=== PATIENT | male | born 1960 | race Caucasian/White ===

== ENCOUNTER 2017-09-09 06:29 | Day surgery (SDC) | payer OTHER ==
[2017-09-06 11:50] LABS: BASOPHILS # (AUTO) 0.1 X10'3 (0-0.2); BASOPHILS % (AUTO) 0.6 % (0-1); EOSINOPHILS # (AUTO) 0.1 X10'3 (0-0.9); EOSINOPHILS % (AUTO) 1.6 % (0-6); LYMPHOCYTES # (AUTO) 2.3 X10'3 (1.1-4.8); LYMPHOCYTES % (AUTO) 28.2 % (21-51); MEAN CORPUSCULAR HEMOGLOBIN 31.2 PG (27.0-31.0); MEAN CORPUSCULAR HGB CONC 35.1 % (33.0-36.5); MEAN CORPUSCULAR VOLUME 89.1 FL (78-98); MEAN PLATELET VOLUME 6.6 FL (7.4-10.4); MONOCYTES # (AUTO) 0.6 X10'3 (0-0.9); MONOCYTES % (AUTO) 7.5 % (2-12); NEUTROPHILS # (AUTO) 5.1 X10'3 (1.8-7.7); NEUTROPHILS % (AUTO) 62.1 % (42-75); PRE OP HEMATOCRIT 42.7 % (42.0-52.0); PRE OP PLATELET COUNT 329 X10'3 (140-440); RED BLOOD COUNT 4.79 X10'6 (4.70-6.10); RED CELL DISTRIBUTION WIDTH 14.3 % (11.5-14.5)
[2017-09-06 12:05] LABS: ALBUMIN 3.7 G/DL (3.4-5.0); ALKALINE PHOSPHATASE 65 IU/L (46-116); BLOOD UREA NITROGEN 19 MG/DL (7-18); BUN/CREATININE RATIO 21.6 (5.4-32.0); CALCIUM 8.9 MG/DL (8.5-10.1); CHLORIDE 108 MMOL/L (99-107); CREATININE 0.88 MG/DL (0.60-1.10); PRE OP ALT 15 U/L (30-65); PRE OP ANION GAP 8 (8-16); PRE OP AST 16 U/L (10-37); PRE OP BILIRUB, TOTAL 0.4 MG/DL (0.0-1.0); PRE OP GLUCOSE 98 MG/DL (70-104); PRE OP POTASSIUM 3.9 MMOL/L (3.4-5.1); PRE OP SODIUM 143 MMOL/L (135-145); TOTAL CARBON DIOXIDE 26.8 MMOL/L (24-32); TOTAL PROTEIN 7.3 G/DL (6.4-8.2); eGFR 90 ML/MIN
[~2017-09-09] VITALS: Ht 165.1 cm; Wt 79.9 kg
[~2017-09-09 06:29] MED LIST: NO HOME MEDS; ceFAZolin 2gm in dextrose, iso 100 ML IV ONE; famotidine 20mg tablet PO ONE; ringers solution, lacted 1,000 ML IV SCH
[2017-09-09] MEDS ORDERED: BUPIVAcaine/PF 2.5 mg/ml (0.25%) 30ml vial ONE (06:54)
[2017-09-09] MEDS ORDERED: LIDOcaine 0.5% (5mg/ml) 50ml vial ONE (08:04)
[2017-09-09] MEDS ORDERED: fentaNYL/PF 50MCG/1 ML 2ML syringe ONE (08:06)
[2017-09-09] MEDS ORDERED: midazolam 2 mg/2 ml injection ONE ×2 (08:06→08:35)
[2017-09-09 08:22] VITALS: BP 142/73
[2017-09-09 08:26] VITALS: BP 142/73
[2017-09-09] MEDS ORDERED: triamcinolone acetonide 40mg/ml inj ONE (08:42)
[2017-09-09] MEDS ORDERED: LIDOcaine 1% (10mg/ml) 2ml vial ONE (08:42)
[2017-09-09] MEDS ORDERED: hydrALAZINE 20mg/ml inj. IV ONE (08:45)
[2017-09-09] MEDS ORDERED: propofol inj 20 ML IV ONE (08:54)
[2017-09-09 09:11] VITALS: BP 153/96
[2017-09-09 09:21] VITALS: BP 145/87
[2017-09-09] MEDS ORDERED: proCHLORperazine 10 MG/2 ml inj IV PRN (09:25)
[2017-09-09] MEDS ORDERED: ondansetron/PF 4mg/2ml inj IV PRN (09:25)
[2017-09-09] MEDS ORDERED: ringers solution, lacted 1,000 ML IV SCH (09:25)
[2017-09-09] MEDS ORDERED: meperidine/PF 50mg/ml syringe IV PRN ×3 (09:25)
[2017-09-09] MEDS ORDERED: morphine 4 MG/ML inj SYRINge IV PRN ×2 (09:25)
[2017-09-09 09:31] VITALS: BP 151/92
== END 2017-09-09 09:41 | disposition home or self-care (01) ==
LOC: PAS 06:29
PROVIDERS: ATTEND Orthopaedic Surgery Hand Surgery
DX: M18.12 Unilateral primary osteoarthritis of first carpometacarpal joint, left hand (principal); M25.742 Osteophyte, left hand; I45.19 Other right bundle-branch block; Z72.89 Other problems related to lifestyle; Z85.840 Personal history of malignant neoplasm of eye; Z90.01 Acquired absence of eye
CPT/HCPCS: 25445; 36415; 80053; 85025; 93005; A4565; A6449; J0360; J0690; J2001; J2250; J2704; J3010; J3301; J3490; J7120; L8630; A7000

== ENCOUNTER 2017-11-25 05:27 | Day surgery (SDC) | payer OTHER ==
[2017-11-21 14:21] LABS: BASOPHILS # (AUTO) 0.1 X10'3 (0-0.2); BASOPHILS % (AUTO) 0.7 % (0-1); EOSINOPHILS # (AUTO) 0.2 X10'3 (0-0.9); EOSINOPHILS % (AUTO) 2.5 % (0-6); LYMPHOCYTES # (AUTO) 2.3 X10'3 (1.1-4.8); LYMPHOCYTES % (AUTO) 26.5 % (21-51); MEAN CORPUSCULAR HEMOGLOBIN 30.8 PG (27.0-31.0); MEAN CORPUSCULAR HGB CONC 34.1 % (33.0-36.5); MEAN CORPUSCULAR VOLUME 90.4 FL (78-98); MEAN PLATELET VOLUME 6.6 FL (7.4-10.4); MONOCYTES # (AUTO) 0.7 X10'3 (0-0.9); MONOCYTES % (AUTO) 8.3 % (2-12); NEUTROPHILS # (AUTO) 5.3 X10'3 (1.8-7.7); PRE OP HEMATOCRIT 41.8 % (42.0-52.0); PRE OP HEMOGLOBIN 14.3 g/dL (14.0-17.9); PRE OP PLATELET COUNT 349 X10'3 (140-440); RED BLOOD COUNT 4.63 X10'6 (4.70-6.10); RED CELL DISTRIBUTION WIDTH 14.3 % (11.5-14.5)
[2017-11-21 14:40] LABS: ALBUMIN 3.5 G/DL (3.4-5.0); ALBUMIN/GLOBULIN RATIO 1.1 (1.1-1.5); ALKALINE PHOSPHATASE 56 IU/L (46-116); BLOOD UREA NITROGEN 18 MG/DL (7-18); BUN/CREATININE RATIO 18.6 (5.4-32.0); CALCIUM 8.5 MG/DL (8.5-10.1); CHLORIDE 107 MMOL/L (99-107); CREATININE 0.97 MG/DL (0.60-1.10); PRE OP ALT 12 U/L (30-65); PRE OP ANION GAP 8 (8-16); PRE OP AST 11 U/L (10-37); PRE OP BILIRUB, TOTAL 0.4 MG/DL (0.0-1.0); PRE OP GLUCOSE 99 MG/DL (70-104); PRE OP POTASSIUM 3.5 MMOL/L (3.4-5.1); PRE OP SODIUM 142 MMOL/L (135-145); TOTAL CARBON DIOXIDE 26.7 MMOL/L (24-32); TOTAL PROTEIN 6.8 G/DL (6.4-8.2); eGFR 80 ML/MIN
[~2017-11-25] VITALS: Ht 165.1 cm; Wt 79.2 kg
[~2017-11-25 05:27] MED LIST changes: -ceFAZolin 2gm in dextrose, iso 100 ML IV ONE; -famotidine 20mg tablet PO ONE; -ringers solution, lacted 1,000 ML IV SCH
[2017-11-25] MEDS ORDERED: famotidine 20mg tablet PO ONE (05:30)
[2017-11-25] MEDS ORDERED: ringers solution, lacted 1,000 ML IV ONE (05:30)
[2017-11-25] MEDS ORDERED: ceFAZolin 1GM/D5W- ADD-VANTAGE 50 ML IV ONE (05:30)
[2017-11-25] MEDS ORDERED: LIDOcaine 1% (10mg/ml) 2ml vial ONE (06:02)
[2017-11-25] MEDS ORDERED: BUPIVAcaine/PF 2.5mg/ml (0.25%) 10ml vial ONE (06:42)
[2017-11-25] MEDS ORDERED: ROPIVAcaine 0.5% (5mg/ml) 30ml vial ONE (07:30)
[2017-11-25] MEDS ORDERED: LIDOcaine 0.5% (5mg/ml) 50ml vial ONE (07:30)
[2017-11-25] MEDS ORDERED: fentaNYL/PF 50MCG/1 ML 2ML syringe ONE (07:33)
[2017-11-25] MEDS ORDERED: MIDAZolam 1mg/ml 10ml vial ONE (07:33)
[2017-11-25] MEDS ORDERED: LIDOcaine 2% (20mg/ml) 5ml vial ONE (07:55)
[2017-11-25] MEDS ORDERED: propofol inj 20 ML IV ONE (07:55)
[2017-11-25 08:05] VITALS: BP 156/91
[2017-11-25 08:08] VITALS: BP 156/91
[2017-11-25] MEDS ORDERED: ringers solution, lacted 1,000 ML IV SCH (08:11)
[2017-11-25] MEDS ORDERED: fentaNYL/PF 50MCG/1 ML 2ML syringe IV PRN ×2 (08:15)
[2017-11-25] MEDS ORDERED: morphine 4 MG/ML inj SYRINge IV PRN ×2 (08:15)
[2017-11-25] MEDS ORDERED: enalaprilat dihydrate 2.5mg/2ml vial IV PRN (08:15)
[2017-11-25] MEDS ORDERED: ondansetron/PF 4mg/2ml inj IV PRN (08:15)
[2017-11-25] MEDS ORDERED: hydrALAZINE 20mg/ml inj. IV PRN (08:15)
[2017-11-25] MEDS ORDERED: flumazenil 0.1 mg/ml inj. IV ONE (08:26)
[2017-11-25 08:40] VITALS: BP 158/80
[2017-11-25 08:50] VITALS: BP 163/93
[2017-11-25 09:00] VITALS: BP 161/99
[2017-11-25 09:20] VITALS: BP 162/98
== END 2017-11-25 09:20 | disposition home or self-care (01) ==
LOC: PAS 05:27
PROVIDERS: ATTEND Orthopaedic Surgery Hand Surgery
DX: M18.11 Unilateral primary osteoarthritis of first carpometacarpal joint, right hand (principal); M25.741 Osteophyte, right hand; M19.031 Primary osteoarthritis, right wrist; M19.032 Primary osteoarthritis, left wrist; M19.90 Unspecified osteoarthritis, unspecified site; Z85.840 Personal history of malignant neoplasm of eye; Z72.89 Other problems related to lifestyle; Z98.890 Other specified postprocedural states
CPT/HCPCS: 25447; 36415; 80053; 85025; A6258; A6449; J0690; J2001; J2250; J2704; J2795; J3010; J3490; J7120; L8630; A7000